=== PATIENT | male | born 1990 | race Hispanic/Latino ===

== ENCOUNTER 2019-09-18 02:20 | Inpatient (IN) | payer SELFPAY ==
[2019-09-18] MEDS ORDERED: Ketamine 50 MG/ML (10ML VIAL) ONE (02:26)
[2019-09-18] MEDS ORDERED: Adacel (T-DAP) 0.5 ML SYRINGE ONE (02:26)
[2019-09-18] MEDS ORDERED: Lidocaine 1% (PF) 30 ML VIAL ONE (02:27)
[2019-09-18 02:33] LABS: #Basophils 0.1 thou/uL (0.0-0.2); #Eosinphils 0.1 thou/uL (0.0-0.7); #Lymphocytes 2.8 thou/uL (1.20-3.40); #Monocytes 0.9 thou/uL (0.11-0.59); #Neutrophils 7.5 thou/uL (1.40-6.50); %Basophils 0.9 % (0.0-1.0); %Eosinophils 1.2 % (0.0-10.0); %Lymphocytes 24.6 % (21.0-51.0); %Monocytes 7.9 % (0.0-10.0); %Neutrophils 65.5 % (42.0-75.0); Hemoglobin 15.5 g/dL (14.0-18.0); Mean Corpuscular Hemoglobin 31.7 pg (27.0-31.0); Mean Corpuscular Volume 93.4 fL (78.0-98.0); Mean Platelet Volume 7.1 fL (7.4-10.4); Platelet Count 369 thou/uL (130-400); RBC Distribution Width 12.2 % (11.5-14.5); White Blood Cell (WBC) Count 11.4 thou/uL (4.8-10.8)
[2019-09-18 02:39] LABS: Prothrombin Time 12.9 sec (12.0-14.7)
[2019-09-18 02:42] LABS: PTT 22.5 sec (22.9-36.1)
[2019-09-18] MEDS ORDERED: Lorazepam 2 MG/ML VIAL ONE (02:51)
[2019-09-18] MEDS ORDERED: Ondansetron PF 4 MG/2 ML Vial ONE (03:05)
[2019-09-18 04:15] LABS: Albumin 3.7 g/dL (3.5-5.0)
[2019-09-18 04:17] LABS: Chloride 106 mmol/L (98-107); Potassium 4.1 mmol/L (3.5-5.1); Sodium 139 mmol/L (136-145)
[2019-09-18 04:18] LABS: Calcium 7.8 mg/dL (7.8-10.44); Globulin 2.4 g/dL (2.4-3.5); Glucose 133 mg/dL (70-105); Protein, Total 6.1 g/dL (6.0-8.3)
[2019-09-18 04:20] LABS: Anion Gap 17 mmol/L (10-20); Bilirubin, Total Less than 0.2 mg/dL (0.2-1.2); Carbon Dioxide 20 mmol/L (22-29)
[2019-09-18 04:21] LABS: Alkaline Phosphatase 97 U/L (40-110); Calc. Creatinine Clearance 0 mL/min (70-130); Estimated GFR-MDRD 80
[2019-09-18 04:22] LABS: BUN (Urea Nitrogen) 10 mg/dL (8.9-20.6)
[2019-09-18 04:23] LABS: AST (SGOT) 58 U/L (5-34)
[2019-09-18 04:24] LABS: ALT (SGPT) 73 U/L (8-55)
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
[2019-09-18] MEDS ORDERED: traMADol HCl 50 MG TAB PO PRN ×2 (04:50)
[2019-09-18] MEDS ORDERED: Dextrose 50% Abboject 50 ML SYRINGE SLOW IVP PRN (04:50)
[2019-09-18] MEDS ORDERED: hydrALAZINE 20 MG/ML VIAL SLOW IVP PRN (04:50)
[2019-09-18] MEDS ORDERED: Cyclobenzaprine 10 MG TAB PO PRN ×3 (04:50→15:00)
[2019-09-18] MEDS ORDERED: Sodium Chloride 0.9% 1,000 ML IV SCH (04:50)
[2019-09-18] MEDS ORDERED: Dextrose 5% in Water 1,000 ML IV PRN (04:50)
[2019-09-18] MEDS ORDERED: Ondansetron PF 4 MG/2 ML Vial IVP PRN (04:50)
[2019-09-18] MEDS ORDERED: Ondansetron ODT 4 MG TAB PO PRN (04:50)
[2019-09-18 05:05] VITALS: BMI 28.0
[2019-09-18 05:27] LABS: Lactic Acid 3.5 mmol/L (0.5-2.2)
[2019-09-18] MEDS ORDERED: Ketorolac Tromethamine 30 MG/ML VIAL IVP SCH (05:45)
[2019-09-18] MEDS ORDERED: Morphine 2 MG/ML SYRINGE SLOW IVP SCH (05:45)
[2019-09-18] MEDS ORDERED: Acetaminophen 325 MG TAB PO SCH (06:00)
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
[2019-09-18] MEDS: Ibuprofen 600 MG TAB PO PRN (07:53)
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
[2019-09-18] MEDS ORDERED: Non-Formulary Item 1 EACH in Sodium Chloride 0.9% 250 ML 210 ML IV SCH (11:15)
[2019-09-18] MEDS: Acetaminophen 500 MG TAB PO SCH ×3 (12:39→23:24)
[2019-09-18] MEDS ORDERED: Iopamidol-370 76% 500 ML 1 ML ONE (14:20)
[2019-09-18] MEDS ORDERED: Rib Fracture Protocol PO SCH (14:45)
[2019-09-18] MEDS ORDERED: Gabapentin 100 MG CAP PO SCH (15:00)
[2019-09-18] MEDS ORDERED: Gabapentin 300 MG CAP PO SCH (15:00)
[2019-09-18] MEDS: traMADol HCl 50 MG TAB PO SCH ×2 (17:16→19:56)
[2019-09-18] MEDS ORDERED: Ibuprofen 800 MG TAB PO SCH (18:00)
[2019-09-18] MEDS ORDERED: Acetaminophen 500 MG TAB PO SCH (18:00)
[2019-09-18] MEDS ORDERED: traMADol HCl 50 MG TAB PO SCH ×2 (18:00)
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
[2019-09-18] MEDS: Gabapentin 300 MG CAP PO SCH (19:57)
[2019-09-18] MEDS ORDERED: Ibuprofen 600 MG TAB PO SCH (22:00)
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
[2019-09-19] MEDS: traMADol HCl 50 MG TAB PO SCH ×3 (01:42→13:59)
[2019-09-19] MEDS: Acetaminophen 500 MG TAB PO SCH ×2 (05:20→11:38)
[2019-09-19] MEDS: Gabapentin 300 MG CAP PO SCH ×2 (08:07→13:59)
[2019-09-19] MEDS: Ibuprofen 600 MG TAB PO PRN (09:35)
--- NOTE | 2019-09-19 11:14 | RAD ---
PORTABLE CHEST 1 VIEW: DATE: 09/19/2019. TIME: 9:04 a.m. COMPARISON: Previous day. FINDINGS/IMPRESSION: The heart size is normal. Left-sided chest tube remains in place. The pulmonary contusion in the le ft lung is again seen. Left-sided rib fractures are redemonstrated. No definite pneumothorax is coni ntified. POS: [facility]
[2019-09-19] MEDS ORDERED: Non-Formulary Item 1 EACH in Sodium Chloride 0.9% 250 ML 230 ML IV SCH (11:15)
[2019-09-19 11:25] VITALS: BP 151/79; TEMP 98.1
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
== END 2019-09-19 14:59 | disposition home or self-care (01) | DRG 964 ==
LOC: ERS 02:20 → INTOOBSV 03:21 → OBSVTOIN 03:21 → SURG A 03:21
PROVIDERS: ADMIT Surgery; ATTEND Surgery
PROC: 0W9B30Z Drainage of Left Pleural Cavity with Drainage Device, Percutaneous Approach (ICD-10-PCS; principal; 2019-09-18)
PROC: 3E0234Z Introduction of Serum, Toxoid and Vaccine into Muscle, Percutaneous Approach (ICD-10-PCS; 2019-09-18)
DX: S27.2XXA Traumatic hemopneumothorax, initial encounter (principal); S42.92XB Fracture of left shoulder girdle, part unspecified, initial encounter for open fracture; S21.132A Puncture wound without foreign body of left front wall of thorax without penetration into thoracic cavity, initial encounter; S27.321A Contusion of lung, unilateral, initial encounter; S22.32XA Fracture of one rib, left side, initial encounter for closed fracture; S22.42XA Multiple fractures of ribs, left side, initial encounter for closed fracture; W34.00XA Accidental discharge from unspecified firearms or gun, initial encounter; Z23 Encounter for immunization
CPT/HCPCS: 32551; 36415; 71045; 71260; 80053; 80307; 83605; 85025; 85610; 85730; 86850; 86900; 86901; 90471; 90715; 94640; 96361; 96374; 96375; 96376; G0378; G0390; J0690; J1885; J2001; J2060; J2405; J7620; Q9967